=== PATIENT | male | born 1985 ===

== ENCOUNTER 2019-04-25 14:46 | Emergency (ER) | payer OTHER ==
[~2019-04-25] VITALS: Ht 165.1 cm; Wt 95.8 kg
[2019-04-25 14:48] VITALS: BP 143/83
== END 2019-04-25 15:59 | disposition home or self-care (01) ==
LOC: ED 15:00
DX: L03.211 Cellulitis of face (principal); L02.01 Cutaneous abscess of face; E11.9 Type 2 diabetes mellitus without complications; Z87.891 Personal history of nicotine dependence
CPT/HCPCS: 10060; 99283